=== PATIENT | male | born 1990 | race African-American/Black ===

== ENCOUNTER 2017-03-04 15:24 | Emergency (ER) | payer SELFPAY ==
--- NOTE | 2017-03-04 17:00 | ER Document Report ---
HPI - HPI Patient complains to provider of: bleeding lip Pain Level: Denies Context: Patient is a 26-year-old male presents emergency Department with a growth on the right medial aspect of his upper lip but she has had for 3 months. Patient states that today he was eating when it felt it pop and started bleeding. Patient states that it happened at 2 in the afternoon and presented to the emergency department because it wouldn't stop bleeding. Otherwise he denies of any pain, pus. Denies any dysphasia, dyspnea. Patient is a nonsmoker. Denies any drug use. - DERM Skin Color: Normal Past Medical History - Social History Smoking Status: Unknown if Ever Smoked Family History: Reviewed & Not Pertinent Patient has suicidal ideation: No Patient has homicidal ideation: No Renal/ Medical History: Denies: Hx Peritoneal Dialysis Vertical Provider Document - CONSTITUTIONAL Agree With Documented VS: Yes Exam Limitations: No Limitations General Appearance: WD/WN, No Apparent Distress - INFECTION CONTROL TRAVEL OUTSIDE OF THE [place] IN LAST 30 DAYS: No - HEENT HEENT: Atraumatic, Normocephalic Mouth Diagram: 1 - Growth. Bleeding Notes: Uvula midline. Airway patent. No evidence of tonsillar enlargement, peritonsillar abscess, retropharyngeal abscess. No evidence of white plaques or bullous/vesicular disease. - NECK Neck: Normal Inspection, Other - No evidence of Ran angina. negative: Lymphadenopathy-Left, Lymphadenopathy-Right - RESPIRATORY Respiratory: Breath Sounds Normal, No Respiratory Distress, Chest Non-Tender O2 Sat by Pulse Oximetry: 97 - CARDIOVASCULAR Cardiovascular: Regular Rate, Regular Rhythm, No Murmur Course - Re-evaluation Re-evalutation: 03/04/17 19:36 Bleeding was able to stop after 25 minutes of pressure. Discussed with patient to apply pressure if bleeding returns and can follow-up with plastic surgery for biopsy. - Vital Signs Vital signs: Temp Pulse Resp BP Pulse Ox 98.1 F 70 14 137/79 H 97 03/04/17 15:41 03/04/17 15:41 03/04/17 15:41 03/04/17 15:41 03/04/17 15:41 Discharge - Discharge Clinical Impression: Lip lesion Condition: Good Disposition: HOME, SELF-CARE Additional Instructions: If the lesion starts bleeding again, apply pressure for 10-30 minutes without looking Follow up with plastic surgery for biopsy Forms: Elevated Blood Pressure Referrals: DAYANNA LEBLANC MD [ACTIVE STAFF] - Follow up in 3-5 days
[2017-03-04 17:35] VITALS: BP 136/77
== END 2017-03-04 17:20 | disposition home or self-care (01) ==
LOC: ER 15:24
DX: K13.0 Diseases of lips (principal)
CPT/HCPCS: 99283

== ENCOUNTER 2017-07-26 02:47 | Emergency (ER) | payer SELFPAY ==
--- NOTE | 2017-07-26 04:01 | ER Document Report ---
HPI - HPI Patient complains to provider of: Lower back pain Pain Level: 5 Context: Patient is a 26-year-old male comes emergency department for chief complaint of lower back pain. 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 He states he felt discomfort at the time but it is much worse today and he cannot sleep because he cannot get comfortable. He has difficulty with position changes. He denies any radiating pain down his legs, he denies any numbness, incontinence, he denies any impact injuries. He denies history of the same, denies any daily medications, surgery, or medical history. - DERM Skin Color: Normal Past Medical History - General Information source: Patient - Social History Smoking Status: Never Smoker Frequency of alcohol use: None Drug Abuse: None Lives with: Family Family History: Reviewed & Not Pertinent Patient has suicidal ideation: No Patient has homicidal ideation: No - Medical History Medical History: Negative Renal/ Medical History: Denies: Hx Peritoneal Dialysis Surgical Hx: Negative - Immunizations Immunizations up to date: Yes Hx Diphtheria, Pertussis, Tetanus Vaccination: Yes Vertical Provider Document - CONSTITUTIONAL General Appearance: WD/WN, No Apparent Distress - Patient makes position changes and walks with some pain but otherwise he does not appear to be in distress - INFECTION CONTROL TRAVEL OUTSIDE OF THE [place] IN LAST 30 DAYS: No - HEENT HEENT: Atraumatic, Normocephalic - NECK Neck: Normal Inspection - RESPIRATORY Respiratory: Breath Sounds Normal, No Respiratory Distress O2 Sat by Pulse Oximetry: 98 - CARDIOVASCULAR Cardiovascular: Regular Rate, Regular Rhythm - GI/ABDOMEN Gastrointestinal: Abdomen Soft, Abdomen Non-Tender - BACK Back: negative: Normal Inspection - Tenderness in the lumbar paraspinal muscles on both sides, much worse on the left, no midline tenderness, no saddle anesthesia, normal upper and lower extremity range of motion, strength, distal neurovascular exam negative axial loading. Positive straight leg raise on the left. - MUSCULOSKELETAL/EXTREMETIES Musculoskeletal/Extremeties: MAKERRIE, FROM, Non-Tender Course - Re-evaluation Re-evalutation: Examination indicates muscle strain and spasm. No concerning neurological deficits, no midline tenderness, no signs of trauma, patient denies any recreational drug use or history of immunological suppression. Will treat for muscle injury, patient actually does appear to have significant pain and moves with some difficulty, will be prescribed medications, provided with work release , discussed follow-up recommendations and return precautions, patient states understanding and agreement. - Vital Signs Vital signs: Temp Pulse Resp BP Pulse Ox 97.8 F 68 18 128/61 H 98 07/26/17 02:47 07/26/17 02:47 07/26/17 02:47 07/26/17 02:47 07/26/17 02:47 Discharge - Discharge Clinical Impression: Muscle strain, Muscle spasm Lower back pain Qualifiers: Chronicity: acute Back pain laterality: bilateral Sciatica presence: without sciatica Qualified Code(s): M54.5 - Low back pain Condition: Stable Disposition: HOME, SELF-CARE Additional Instructions: Examination is consistent with lumbar muscular strain and spasm. Take the anti- inflammatory as prescribed, take the Valium as prescribed as a muscle relaxer, apply heat to the area, avoid lifting/twisting and rest. Follow-up with primary care. Return to the emergency department for any concerning symptoms including numbness, loss of bowel or bladder control, fever, or any other concerning symptoms. Prescriptions: Diazepam [Valium 5 mg Tablet] 1 - 2 tab PO TID #10 tablet Naproxen 500 mg PO BID #20 tablet Forms: Return to Work
[2017-07-26 04:54] VITALS: BP 124/77
== END 2017-07-26 04:54 | disposition home or self-care (01) ==
LOC: ER 02:47
DX: T14.8XXA Other injury of unspecified body region, initial encounter (principal); X50.0XXA Overexertion from strenuous movement or load, initial encounter; Y92.513 Shop (commercial) as the place of occurrence of the external cause; Y99.0 Civilian activity done for income or pay; M54.5 Low back pain; M62.838 Other muscle spasm
CPT/HCPCS: 99283